=== PATIENT | female | born 1950 | race Caucasian/White ===

== ENCOUNTER → 2019-02-04 | Outpatient (CLI) | payer MEDICARE ==
[~2019-02-04] MED LIST: IOPAMIDOL 370 MG/ML 200 ML INFUS..BTL INJ ONE; SODIUM CHLORIDE 0.9% 100 ML 100 ML ONE
[2019-02-04 10:29] LABS: BLOOD UREA NITROGEN 8 mg/dL (7-26); BUN/CREATININE RATIO 11 (6-25); CREATININE, SERUM 0.75 mg/dL (0.57-1.11); EST GLOMERULAR FILTRATION RATE > 60 ML/MIN (60-)
--- NOTE | 2019-02-04 11:14 | Diagnostic Imaging Report ---
EXAMINATION: CT scan angiography of the chest with contrast. TECHNIQUE: Spiral CT images of the chest were performed from the lung apices to the level of the adrenal glands after the intravenous administration of 100 cc [id number].. Coronal and sagittal reformatted images were obtained. For optimization of anatomic definition, volume rendered reconstructed images were generated on a stand-alone workstation under the direct supervision of the interpreting physician. COMPARISON: None. CLINICAL HISTORY:Thoracic aortic aneurysm DISCUSSION: Vasculature: Measurements of the thoracic aorta are as follows: Aortic root: 2.4 cm Sinuses of Valsalva: 3.5 cm Ascending aorta: 4.0 cm Proximal arch: 3.6 cm Distal arch: 2.3 cm Isthmus: 2.6 cm Descending aorta: 2.7 cm Calcified and noncalcified atherosclerotic plaque of the thoracic aorta, coronary arteries, and great vessel origins. The pulmonary outflow tract is of normal caliber. No central filling defect within the main, right, or left pulmonary arteries. LINES/TUBES: None. LUNGS AND AIRWAYS: Mild upper lobe predominant centrilobular emphysematous changes. No airspace consolidation, gross fibrotic change. Trachea, mainstem bronchi, and central lobar and segmental bronchi are patent. PLEURA: Bilateral Bochdalek diaphragmatic hernias. No pleural effusion or pneumothorax. HEART AND MEDIASTINUM: Visualized portions of the thyroid gland appear normal. No axillary, hilar, or mediastinal lymphadenopathy. Trace pericardial effusion. LYMPH NODES: There is no mediastinal, hilar or axillary lymphadenopathy. ABDOMEN: Visualized portions of the liver, adrenals, and pancreas are unremarkable. Subcentimeter hypoattenuating lesion right kidney too small to further characterize but likely to represent a small cyst. Heterogeneity of splenic attenuation reflects arterial phase of scan. BONES AND SOFT TISSUES: No osseous destructive lesions. Multilevel degenerative disc changes of the lower cervical and thoracic spine. Posttraumatic deformities of right-sided ribs. 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 Trace pericardial effusion. Mild upper lobe predominant centrilobular emphysema. Signed by: Dr. Fermin Alves M.D. on 02/04/2019 11:11 AM
== END ==
LOC: CT 09:48
PROVIDERS: ATTEND Internal Medicine
DX: I71.2 Thoracic aortic aneurysm, without rupture (principal); K44.9 Diaphragmatic hernia without obstruction or gangrene
CPT/HCPCS: 36415; 71275; 82565; 84520; Q9967

== ENCOUNTER → 2021-11-28 | Outpatient (CLI) | payer MEDICARE ==
[~2021-11-28] MED LIST changes: -SODIUM CHLORIDE 0.9% 100 ML 100 ML ONE; +SODIUM CHLORIDE 0.9% 50ML 50 ML ONE
[2021-11-28 12:39] LABS: CREATININE, SERUM 0.8 mg/dL (0.57-1.11)
== END ==
LOC: CT 11:31
PROVIDERS: ATTEND Internal Medicine
DX: R06.02 Shortness of breath (principal); R60.1 Generalized edema; Z72.0 Tobacco use
CPT/HCPCS: 36415; 74177; 82565; 84520; Q9967